=== PATIENT | male | born 1940 | race Caucasian/White ===

== ENCOUNTER 2017-07-02 15:04 | Inpatient (IN) | payer OTHER ==
--- NOTE | 2017-07-02 16:35 | ER ---
Nurse's Notes [facility] Name: Austin Vora Age: 76 yrs Sex: Male : 1940 Arrival Date: 07/02/2017 Time: 15:05 Bed 19 Private MD: Darrion Godoy S Diagnosis: Gastrointestinal hemorrhage, unspecified-lower;Anemia, unspecified Presentation: 07/02 15:53 Presenting complaint: Patient states: about 3:30am yesterday, i started passing blood, hj fresh bright red blood; denies abd pain; had colonoscopy last week and they did saw polyps; denies nausea and vomiting; reports weakness;. Transition of care: patient was not received from another setting of care. Onset of symptoms was July 02, 2017. Care prior to arrival: None. 15:53 Method Of Arrival: Ambulatory 15:53 Acuity: IKE 3 hj Triage Assessment: 15:58 General: Appears in no apparent distress. uncomfortable, Behavior is calm, cooperative, hj appropriate for age. Pain: Denies pain. GI: Reports rectal bleeding, bloody stool. Historical: - Allergies: 15:58 No Known Allergies; hj - Home Meds: 15:58 aspirin 81 mg Oral TbEC 1 tab once daily [Active]; parkinsons med [Active]; hj Carbidopa-Levodopa Oral [Active]; - PMHx: 15:58 Parkinsons; prostate cancer; hj - PSHx: 15:58 shoulder; hj - Immunization history:: Adult Immunizations up to date. - Social history:: Smoking status: Patient/guardian denies using tobacco. - Family history:: not pertinent. Screenin:21 Abuse screen: Denies threats or abuse. Nutritional screening: No deficits noted. em Tuberculosis screening: No symptoms or risk factors identified. Fall Risk None identified. Assessment: 16:15 General: Appears in no apparent distress. comfortable, Behavior is calm, cooperative. em Pain: Denies pain. Neuro: Level of Consciousness is awake, alert, obeys commands, Oriented to person, place, time, situation. Neuro: Denies dizziness. Cardiovascular: Capillary refill < 3 seconds Patient's skin is warm and dry. Respiratory: Airway is patent Respiratory effort is even, unlabored, Respiratory pattern is regular, symmetrical. GI: Abdomen is round Bowel sounds present X 4 quads. Reports bloody stool, since yesterday at 0330 Patient currently denies abdominal pain, nausea, vomiting. : No signs and/or symptoms were reported regarding the genitourinary system. EENT: No signs and/or symptoms were reported regarding the EENT system. Derm: Skin is intact, Skin is pink, warm \T\ dry. Musculoskeletal: Range of motion: intact in all extremities. 16:30 Reassessment: Patient appears in no apparent distress at this time. I agree with above iw assessment by Isma Vega LVN. 17:30 Reassessment: Patient appears in no apparent distress at this time. Patient and/or em family updated on plan of care and expected duration. Pain level reassessed. Patient is alert, oriented x 3, equal unlabored respirations, skin warm/dry/pink. Patient denies pain at this time. 18:12 Reassessment: Patient appears in no apparent distress at this time. Patient and/or em family updated on plan of care and expected duration. Pain level reassessed. Patient is alert, oriented x 3, equal unlabored respirations, skin warm/dry/pink. Patient denies pain at this time. 18:44 Reassessment: had one BM with bright red blood, ERP notified no new orders received. em Vital Signs: 15:58 BP 121 / 78; Pulse 91; Resp 18; Temp 98.9(TE); Pulse Ox 100% on R/A; Weight 83.91 kg; hj Height 5 ft. 11 in. (180.34 cm); Pain 0/10; 16:45 BP 132 / 67; Pulse 86; Resp 14; Pulse Ox 100% on R/A; Pain 0/10; em 17:45 BP 124 / 81; Pulse 87; Resp 18; Pulse Ox 99% on R/A; Pain 0/10; em 18:55 BP 123 / 78; Pulse 91; Resp 18; Pulse Ox 99% on R/A; Pain 0/10; em 19:15 BP 118 / 71; Pulse 90; Resp 18 S; Pulse Ox 100% on R/A; jd3 15:58 Body Mass Index 25.80 (83.91 kg, 180.34 cm) ED Course: 15:05 Patient arrived in ED. mr 15:06 Darrion Godoy MD is Private Physician. mr 15:55 Triage completed. hj 15:58 Arm band placed on left wrist. hj 16:08 David Patiño MD is Attending Physician. phil 16:18 Isma Vega LVN is Primary Nurse. em 16:21 Patient has correct armband on for positive identification. Placed in gown. Call light em in reach. Side rails up X2. Adult w/ patient. 16:21 No provider procedures requiring assistance completed. em 16:34 Robel Rush DO is Hospitalizing Provider. phil 18:02 EKG done, by central supply technician. reviewed by David Patiño MD. tc 20:28 Patient admitted, IV remains in place. jd3 Administered Medications: 16:54 Drug: Cipro 400 mg Volume: 200 ml; Route: IVPB; Infused Over: 60 mins; Site: right em antecubital; 18:00 Follow up: IV Status: Completed infusion; IV Intake: 100ml em 16:55 Drug: Flagyl 500 mg Volume: 100 ml; Route: IVPB; Rate: 200 ml/hr; Infused Over: 30 em mins; Site: right antecubital; 18:00 Follow up: IV Status: Completed infusion; IV Intake: 100ml em 16:55 Drug: NS 0.9% 1000 ml Route: IV; Rate: 125 ml/hr; Site: right antecubital; em 20:58 Follow up: Response: No adverse reaction; IV Status: Infusion continued upon admission jd3 Intake: 18:00 IV: 100ml; Total: 100ml. em 18:00 IV: 100ml; Total: 200ml. em Outcome: 16:35 Decision to Hospitalize by Provider. phil 20:27 Admitted to Med/surg accompanied by tech, via stretcher, room 230, with chart, Report jd3 called to Prachi HOSKINS 20:27 Condition: stable 20:27 Instructed on the need for admit, Demonstrated understanding of instructions. 21:12 Patient left the ED. jd3 Signatures: David Patiño MD MD cha Rivera, Maria mr Isma Vega, IMAGE PROCESSING ENGINEER IMAGE PROCESSING ENGINEER em Anum Kerr, Michaela Conte RN, supervisor detasseling crew EKG Ttc Cali Garcia RN RN hj Davies, Jonathon, RN RN jfeng Corrections: (The following items were deleted from the chart) 16:00 15:58 Pulse 91bpm; Resp 18bpm; Pulse Ox 100% RA; Temp 98.9F Temporal; 83.91 kg; Height hj 5 ft. 11 in.; BMI: 25.8; Pain 0/10; hj
--- NOTE | 2017-07-02 16:36 | EDPHYS ---
Physician Documentation [facility] Name: Austin Vora Age: 76 yrs Sex: Male : 1940 Arrival Date: 07/02/2017 Time: 15:05 Bed 19 Private MD: Darrion Godoy S ED Physician David Patiño HPI: 07/02 16:30 This 76 yrs old Male presents to ER via Ambulatory with complaints of Bloody phil Stools. 16:30 The patient presents to the emergency department with rectal bleeding. Onset: The phil symptoms/episode began/occurred yesterday. Abdominal pain: none is appreciated. Modifying factors: The symptoms are alleviated by nothing, the symptoms are aggravated by nothing. Associated signs and symptoms: The patient has no apparent associated signs or symptoms. Severity of symptoms: At their worst the symptoms were mild in the emergency department the symptoms are unchanged. The patient has not experienced similar symptoms in the past. colonoscopy 11 days, 3 polyps. Historical: - Allergies: 15:58 No Known Allergies; hj - Home Meds: 15:58 aspirin 81 mg Oral TbEC 1 tab once daily [Active]; parkinsons med [Active]; hj Carbidopa-Levodopa Oral [Active]; - PMHx: 15:58 Parkinsons; prostate cancer; hj - PSHx: 15:58 shoulder; hj - Immunization history:: Adult Immunizations up to date. - Social history:: Smoking status: Patient/guardian denies using tobacco. - Family history:: not pertinent. ROS: 16:30 Constitutional: Negative for fever, chills, and weight loss, Eyes: Negative for injury, phil pain, redness, and discharge, ENT: Negative for injury, pain, and discharge, Neck: Negative for injury, pain, and swelling, Cardiovascular: Negative for chest pain, palpitations, and edema, Respiratory: Negative for shortness of breath, cough, wheezing, and pleuritic chest pain, Back: Negative for injury and pain, : Negative for injury, bleeding, discharge, and swelling, MS/Extremity: Negative for injury and deformity, Skin: Negative for injury, rash, and discoloration, Neuro: Negative for headache, weakness, numbness, tingling, and seizure, Psych: Negative for depression, anxiety, suicide ideation, homicidal ideation, and hallucinations, Allergy/Immunology: Negative for hives, rash, and allergies, Endocrine: Negative for neck swelling, polydipsia, polyuria, polyphagia, and marked weight changes, Hematologic/Lymphatic: Negative for swollen nodes, abnormal bleeding, and unusual bruising. 16:30 Abdomen/GI: Positive for rectal bleeding. Exam: 16:30 Constitutional: This is a well developed, well nourished patient who is awake, alert, phil and in no acute distress. Head/Face: Normocephalic, atraumatic. Eyes: Pupils equal round and reactive to light, extra-ocular motions intact. Lids and lashes normal. Conjunctiva and sclera are non-icteric and not injected. Cornea within normal limits. Periorbital areas with no swelling, redness, or edema. ENT: Nares patent. No nasal discharge, no septal abnormalities noted. Tympanic membranes are normal and external auditory canals are clear. Oropharynx with no redness, swelling, or masses, exudates, or evidence of obstruction, uvula midline. Mucous membranes moist. Neck: Trachea midline, no thyromegaly or masses palpated, and no cervical lymphadenopathy. Supple, full range of motion without nuchal rigidity, or vertebral point tenderness. No Meningismus. Chest/axilla: Normal chest wall appearance and motion. Nontender with no deformity. No lesions are appreciated. Cardiovascular: Regular rate and rhythm with a normal S1 and S2. No gallops, murmurs, or rubs. Normal PMI, no JVD. No pulse deficits. Respiratory: Lungs have equal breath sounds bilaterally, clear to auscultation and percussion. No rales, rhonchi or wheezes noted. No increased work of breathing, no retractions or nasal flaring. Back: No spinal tenderness. No costovertebral tenderness. Full range of motion. Male : Normal genitalia with no discharge or lesions. Skin: Warm, dry with normal turgor. Normal color with no rashes, no lesions, and no evidence of cellulitis. MS/ Extremity: Pulses equal, no cyanosis. Neurovascular intact. Full, normal range of motion. Neuro: Awake and alert, GCS 15, oriented to person, place, time, and situation. Cranial nerves II-XII grossly intact. Motor strength 5/5 in all extremities. Sensory grossly intact. Cerebellar exam normal. Normal gait. Psych: Awake, alert, with orientation to person, place and time. Behavior, mood, and affect are within normal limits. 16:30 Abdomen/GI: Inspection: abdomen appears normal, Bowel sounds: normal, Palpation: abdomen is soft and non-tender, Rectal exam: Stool: grossly bloody, Liver: no appreciated palpable abnormalities, Hernia: not appreciated. Vital Signs: 15:58 BP 121 / 78; Pulse 91; Resp 18; Temp 98.9(TE); Pulse Ox 100% on R/A; Weight 83.91 kg; hj Height 5 ft. 11 in. (180.34 cm); Pain 0/10; 16:45 BP 132 / 67; Pulse 86; Resp 14; Pulse Ox 100% on R/A; Pain 0/10; em 17:45 BP 124 / 81; Pulse 87; Resp 18; Pulse Ox 99% on R/A; Pain 0/10; em 18:55 BP 123 / 78; Pulse 91; Resp 18; Pulse Ox 99% on R/A; Pain 0/10; em 19:15 BP 118 / 71; Pulse 90; Resp 18 S; Pulse Ox 100% on R/A; jd3 15:58 Body Mass Index 25.80 (83.91 kg, 180.34 cm) MDM: 16:08 Patient medically screened. [facility] 16:16 Patient medically screened. [facility] 16:30 Data reviewed: vital signs, nurses notes, lab test result(s), EKG, radiologic studies, [facility] CT scan, plain films. 07/02 16:13 Order name: Basic Metabolic Panel [facility] 07/02 16:13 Order name: BNP [facility] 07/02 16:13 Order name: CBC with Diff [facility] 07/02 16:13 Order name: Ckmb [facility] 07/02 16:13 Order name: CPK [facility] 07/02 16:13 Order name: LFT's [facility] 07/02 16:13 Order name: Magnesium [facility] 07/02 16:13 Order name: PT-INR [facility] 07/02 16:13 Order name: Ptt, Activated [facility] 07/02 16:13 Order name: Troponin (emerg Dept Use Only) [facility] 07/02 16:13 Order name: Lipase [facility] 07/02 16:13 Order name: Type And Screen [facility] 07/02 16:13 Order name: Urine Culture [facility] 07/02 17:02 Order name: Urine Dipstick--Ancillary (enter results) n[facility] 07/02 16:13 Order name: XRAY Chest (1 view) [facility] 07/02 16:13 Order name: CT Abd/Pelvis - W/Contrast [facility] 07/02 17:03 Order name: CBC with Automated Diff; Complete Time: 17:11 [facility] 07/02 17:05 Order name: Protime (+INR); Complete Time: 17:11 [facility] 07/02 17:05 Order name: PTT, Activated Partial Thromb; Complete Time: 17:11 [facility] 07/02 17:12 Order name: Basic Metabolic Panel; Complete Time: 17:37 [facility] 07/02 17:12 Order name: Lipase; Complete Time: 17:37 [facility] 07/02 17:16 Order name: Troponin (Emerg Dept Use Only); Complete Time: 17:37 [facility] 07/02 17:22 Order name: BNP B-Type Natriuretic Peptide; Complete Time: 17:37 [facility] 07/02 17:22 Order name: Liver (Hepatic) Function; Complete Time: 17:37 [facility] 07/02 17:22 Order name: Creatine Phosphokinase; Complete Time: 17:37 [facility] 07/02 17:22 Order name: CKMB Creatine Kinase MB; Complete Time: 17:37 [facility] 07/02 17:22 Order name: Magnesium; Complete Time: 17:37 [facility] 07/02 17:50 Order name: Urine Dipstick-Ancillary; Complete Time: 19:05 [facility] 07/02 17:51 Order name: Type and Screen; Complete Time: 19:05 [facility] 07/02 18:00 Order name: ABO/RH no charge; Complete Time: 19:05 [facility] 07/02 16:13 Order name: EKG; Complete Time: 16:15 [facility] 07/02 16:13 Order name: Cardiac monitoring; Complete Time: 18:03 [facility] 07/02 16:13 Order name: EKG - Nurse/Tech; Complete Time: 18:03 [facility] 07/02 16:13 Order name: IV Saline Lock; Complete Time: 18:03 [facility] 07/02 16:13 Order name: Labs collected and sent; Complete Time: 18:03 [facility] 07/02 16:13 Order name: O2 Per Protocol; Complete Time: 18:03 [facility] 07/02 16:13 Order name: O2 Sat Monitoring; Complete Time: 18:03 [facility] 07/02 16:13 Order name: Urine Dipstick-Ancillary (obtain specimen); Complete Time: 18:03 phil 07/02 16:38 Order name: RAD; Complete Time: 17:11 [facility] 07/02 18:37 Order name: CT; Complete Time: 19:05 EDMS Administered Medications: 16:54 Drug: Cipro 400 mg Volume: 200 ml; Route: IVPB; Infused Over: 60 mins; Site: right em antecubital; 18:00 Follow up: IV Status: Completed infusion; IV Intake: 100ml em 16:55 Drug: Flagyl 500 mg Volume: 100 ml; Route: IVPB; Rate: 200 ml/hr; Infused Over: 30 em mins; Site: right antecubital; 18:00 Follow up: IV Status: Completed infusion; IV Intake: 100ml em 16:55 Drug: NS 0.9% 1000 ml Route: IV; Rate: 125 ml/hr; Site: right antecubital; em 20:58 Follow up: Response: No adverse reaction; IV Status: Infusion continued upon admission jd3 Disposition: 07/02/17 16:35 Hospitalization ordered by Robel Rush for Inpatient Admission. Preliminary diagnosis are Gastrointestinal hemorrhage, unspecified - lower, Anemia, unspecified. - Bed requested for Telemetry/MedSurg (Inpatient). - Status is Inpatient Admission. jd3 - Condition is Stable. - Problem is new. - Symptoms have improved. UTI on Admission? No Signatures: Dispatcher [employer] David Helton MD MD cha Munoz, Edgar, MANAGER SUPPORT SERVICES MANAGER SUPPORT SERVICES em Cali Garcia RN RN hj Fitzgerald, Diane, RN RN df Davies, Jonathon, RN RN jd3
--- NOTE | 2017-07-02 16:37 | RAD REPORT ---
EXAM DESCRIPTION: RAD - Chest Single View - 07/02/2017 4:31 pm CLINICAL HISTORY: Chest and abdomen pain. COMPARISON: None. FINDINGS: Portable technique limits examination quality. The lungs are grossly clear. The heart is normal in size. No displaced fractures. IMPRESSION: No acute intrathoracic process suspected.
[2017-07-02] MEDS ORDERED: METRONIDAZOLE 500mg IVPB 500 MG/100 ML BAG IV ONE (16:45)
[2017-07-02] MEDS ORDERED: CIPROFLOXACIN 400mg IV 400 MG/200 ML BAG IV ONE (16:45)
[2017-07-02] MEDS ORDERED: NA CHLORIDE 0.9% 1,000 ML ONE (16:46)
[2017-07-02 16:58] LABS: Absolute Lymphocytes (CBC) 2.5 K/uL (0.7-4.9); Absolute Monocytes 0.9 K/uL (0.1-1.3); Absolute Neutrophil 3.7 K/uL (1.8-8.0); Basophils % 0.7 % (0-1.3); Eosinophils % 0.9 % (0-4.4); Hematocrit 39.8 % (39.6-49.0); Lymphocytes % 35.3 % (15.3-44.8); MCH 29.7 pg (27.0-35.0); MCV 89.8 fL (80-100); MPV 8.2 fL (7.6-11.3); RBC Red Blood Cell Count 4.44 M/uL (4.33-5.43)
[2017-07-02 17:05] LABS: Protime INR 0.98
[2017-07-02 17:12] LABS: Bicarbonate 26 mEq/L (21-31); Glucose Level 97 mg/dL (65-120); Lipase 16 U/L (22-51); Potassium 4.1 mEq/L (3.6-5.0); Sodium Level 140 mEq/L (135-145)
[2017-07-02 17:18] LABS: AST/SGOT 26 IU/L (10-42); Alkaline Phosphatase 80 IU/L (42-121); BUN Blood Urea Nitrogen 33 mg/dL (6-20); Bilirubin Direct 0.1 mg/dL (0-0.2); Bilirubin Total 1.2 mg/dL (0.3-1.2); Creatine Phosphokinase 232 IU/L (22-269); Glomerular Filtration Rate 70 mL/min (=/>90); Magnesium 2.2 mg/dL (1.8-2.5); Protein, Total 6.4 g/dL (6.0-8.3)
[2017-07-02 17:22] LABS: ALT/SGPT < 5 IU/L (10-60)
[2017-07-02 17:50] LABS: Urine Blood NEGATIVE (NEG); Urine Glucose NEGATIVE (NEG); Urine Protein NEGATIVE (NEG); Urine Specific Gravity >1.030 (1.005-1.030); Urine pH 5.5 (5.0-7.0)
--- NOTE | 2017-07-02 18:06 | P.HP ---
Certification for Inpatient Patient admitted to: Observation With expected LOS: <2 Midnights Patient will require the following post-hospital care: None Practitioner: I am a practitioner with admitting privileges, knowledge of patient current condition, hospital course, and medical plan of care. Services: Services provided to patient in accordance with Admission requirements found in Title 42 Section 412.3 of the Code of Federal Regulations Patient History Date of Service: 07/02/17 Primary Care Provider: Dr. Godoy; GI-Dr. Clark; Urology-Dr. Garcia Reason for admission: Rectal bleeding History of Present Illness: 76-year-old male presented emergency room with rectal bleeding. Patient reports that he had a colonoscopy about 11 days ago. This was done as an outpatient. Patient had multiple polyps removed. He did well post procedure. Then yesterday he began to have bright red blood coming from the rectum. It initially looked like diarrhea. He had 5 bowel movements with a red blood noted. No significant nausea, vomiting or abdominal pain noted. The patient continued to have rectal bleeding so we came to the emergency room for further evaluation. In the ER he was evaluated. Vital signs stable. Hemoglobin 13. Sodium 140, potassium 4.1, GFR 70. Chest x-ray unremarkable. CT scan of the abdomen and pelvis are pending. Due to nature of his findings the patient was admitted for observation. I was asked to admit the patient. When I saw the patient the ER, he appeared stable. He did not appear in any distress. Rectal bleeding under control. Patient with history of Parkinson's and prostate cancer. Patient does take a baby aspirin. Patient admits to drinking alcohol. He does not smoke. Home medications list reviewed: Yes - Past Medical/Surgical History Diabetic: No -: Parkinson's -: Prostate cancer -: Rotator cuff bilateral Psychosocial/ Personal History: The patient is of 35 years. He has 3 children. He no longer works. - Family History Mother -: Cancer (Breast cancer) Father -: Diabetes - Social History Smoking Status: Never smoker Alcohol use: Yes CD- Drugs: No Caffeine use: Yes Place of Residence: Home Review of Systems General: As per HPI Eyes: Unremarkable ENT: Unremarkable Respiratory: Unremarkable Cardiovascular: Unremarkable Gastrointestinal: Melena, Hematochezia, As per HPI Genitourinary: Unremarkable Musculoskeletal: Unremarkable Integumentary: Unremarkable Neurological: Unremarkable Lymphatics: Unremarkable Physical Examination - Physical Exam General: Alert, In no apparent distress, Oriented x3, Cooperative HEENT: Atraumatic, Normocephalic, PERRLA, Mucous membr. moist/pink Neck: Supple, No Thyromegaly Respiratory: Clear to auscultation bilaterally, Normal air movement Cardiovascular: Normal pulses, Regular rate/rhythm Gastrointestinal: Normal bowel sounds, Soft and benign, Non-distended, No ascites, No tenderness, No masses, No rebound, No guarding Musculoskeletal: No contractures, No erythema, No tenderness, No warmth Integumentary: No tenderness/swelling, No erythema, No warmth, No cyanosis Neurological: Normal speech, Normal strength at 5/5 x4 extr, Normal tone, Normal affect, Other (Mild tremor noted) Lymphatics: No axilla or inguinal lymphadenopathy Rectal: Other (Patient has dried blood to the anus.) Assessment and Plan - Problems (Diagnosis) (1) Rectal bleeding Current Visit: Yes Status: Acute Plan: Patient had colonoscopy 10 days ago. Patient with rectal bleeding. This appears stable at this time. Hemoglobin stable. Will continue monitor hemoglobin closely. If hemoglobin drops below 7 the patient may require transfusion. Will start Cipro and Flagyl. Case discussed with GI. Will continue with a clear liquid diet. GI will assess tomorrow. Await CT findings. (2) Colon polyps Current Visit: Yes Status: Chronic Plan: Patient reports colonoscopy recently. 3 polyps removed. (3) Parkinsons Current Visit: Yes Status: Chronic Plan: Will need to continue with his medication. (4) Prostate cancer Current Visit: Yes Status: Chronic Plan: Patient currently being assessed by urology. He is currently being staged for possible treatment. Discharge Plan: Home Plan to discharge in: 24 Hours - Advance Directives Does patient have a Living Will: Yes Does patient have a Durable POA for Healthcare: No - Code Status/Comfort Care Code Status Assessed: Yes Time Spent Managing Pts Care (In Minutes): 55
--- NOTE | 2017-07-02 18:37 | RAD REPORT ---
EXAM DESCRIPTION: CT - Abdomen Pelvis W Contrast - 07/02/2017 6:07 pm CLINICAL HISTORY: Abdominal pain, with the stools, bright red blood per rectum, history of colonosco py 1 week earlier with polyps COMPARISON: None. TECHNIQUE: Biphasic, helical CT imaging of the abdomen and pelvis was performed following 100 ml non -ionic IV contrast. Oral contrast was given. All CT scans are performed using dose optimization technique as appropriate and may include automated exposure control or mA/KV adjustment according to patient size. FINDINGS: No suspicious findings in the lung bases. No pericardial thickening or effusion. The liver, spleen, and pancreas show no suspicious findings. Gallbladder is mostly contracted. Gallst ones can be occult. No biliary tree dilatation. Symmetric renal function is seen with no hydronephrosis or suspicious renal mass. No pyelonephritis o r acute renal parenchymal process. Partially filled urinary bladder shows no suspicious findings. Pro state gland is prominent but no suspicion for invasion of adjacent structures. No dilated bowel loops or bowel wall thickening. No GI process seen to explain the rectal bleeding hi story. No free air, free fluid or inflammatory stranding. No mass or bulky lymphadenopathy. Small fa t filled bilateral inguinal hernias are present. No adrenal abnormality. Prominent disc and bony degenerative changes are present. IMPRESSION: CT abdomen and pelvis imaging shows no acute or worrisome finding. Specifically, no abno rmality to explain rectal bleeding history.
[2017-07-02] MEDS ORDERED: SODIUM CHLORIDE 0.9% 10ML INJ IV PRN (19:46)
[2017-07-02] MEDS: NA CHLORIDE 0.9% 1,000 ML IV SCH (19:46)
[2017-07-02] MEDS ORDERED: ONDANSETRON 4 MG/2 ML VIAL IV PRN (19:46)
[2017-07-02] MEDS ORDERED: ACETAMINOPHEN 500 MG TAB PO PRN (19:46)
[2017-07-02] MEDS ORDERED: CIPROFLOXACIN 400mg IV 400 MG/200 ML BAG IV SCH (21:00)
[2017-07-02 22:35] LABS: Hematocrit 35.2 % (39.6-49.0)
[2017-07-03] MEDS: METRONIDAZOLE 500mg IVPB 500 MG/100 ML BAG IV SCH ×3 (01:07→16:22)
[2017-07-03] MEDS: CIPROFLOXACIN 400mg IV 400 MG/200 ML BAG IV SCH ×2 (04:25→16:22)
[2017-07-03] MEDS: NA CHLORIDE 0.9% 1,000 ML IV SCH ×3 (04:25→16:21)
[2017-07-03 05:48] LABS: Absolute Monocytes 0.7 K/uL (0.1-1.3); Basophils % 0.7 % (0-1.3); Eosinophils % 1.9 % (0-4.4); Hematocrit 33.5 % (39.6-49.0); Lymphocytes % 41.3 % (15.3-44.8); MCH 29.7 pg (27.0-35.0); MCV 89.7 fL (80-100); MPV 8.2 fL (7.6-11.3); Monocytes % 15.3 % (3.3-12.3); RBC Red Blood Cell Count 3.74 M/uL (4.33-5.43)
[2017-07-03 06:12] LABS: Magnesium 2.1 mg/dL (1.8-2.5); Potassium 3.7 mEq/L (3.6-5.0)
[2017-07-03 07:12] LABS: Urine Appearance CLEAR; Urine Bilirubin NEGATIVE (NEG); Urine Blood NEGATIVE (NEG); Urine Color YELLOW; Urine Glucose NEGATIVE (NEG); Urine Protein NEGATIVE (NEG); Urine Specific Gravity >=1.030 (1.005-1.030); Urine Urobilinogen 0.2 mg/dL (0.2-1.0)
[2017-07-03 07:18] LABS: Urine Microscopic Reflex ORDER UMIC
[2017-07-03] MEDS ORDERED: POTASSIUM CL SA 10 MEQ TAB PO ONE (07:30)
--- NOTE | 2017-07-03 07:58 | EKG ---
Test Date: 2017-07-02 Test Time: 17:51:12 Director Of Direct Marketing: VERO MEASUREMENT RESULTS: Intervals: Rate: 90 CT: 160 QRSD: 126 QT: 382 QTc: 467 [place]: P: 63 CT: 160 QRS: 1 T: 39 INTERPRETIVE STATEMENTS: Normal sinus rhythm Right bundle branch block Abnormal ECG No previous ECG available for comparison Electronically Signed On 07-03-17 07:57:07 CDT by Matthew Jacobs
[2017-07-03] MEDS ORDERED: PNEUMOCOCCAL VACCINE 0.5 ML IMVAC ONE (08:00)
[2017-07-03] MEDS ORDERED: INFLUENZA VACCINE (for 3y+) 0.5 ML DOSE IMVAC ONE (08:00)
[2017-07-03 08:16] LABS: Urine Bacteria NONE SEEN /HPF (NONE SEEN); Urine RBC <5 /HPF (NONE SEEN)
[2017-07-03 08:17] LABS: Urine Culture Reflex Order NOT NEEDED
[2017-07-03] MEDS: PANTOPRAZOLE 40 MG INJ IVP SCH (08:34)
[2017-07-03] MEDS ORDERED: AMANTADINE HCL PO SCH (09:00)
[2017-07-03] MEDS ORDERED: CARBIDOPA LEVO PO SCH (09:00)
[2017-07-03] MEDS ORDERED: RASAGILINE MESYLATE PO SCH (09:00)
--- NOTE | 2017-07-03 10:30 | P.PN ---
Subjective Date of Service: 07/03/17 Primary Care Provider: Dr. Godoy; GI-Dr. Clark; Urology-Dr. Garcia Chief Complaint: Rectal bleeding Subjective: Other (Patient doing well at this time. Still with rectal bleeding. ) Physical Examination - Vital Signs Temperature: 97.8 F Blood Pressure: 112/60 Pulse: 79 Respirations: 18 Pulse Ox (%): 100 - Physical Exam General: Alert, In no apparent distress, Oriented x3, Cooperative HEENT: Atraumatic Neck: Supple, No Thyromegaly Respiratory: Clear to auscultation bilaterally, Normal air movement Cardiovascular: Normal pulses, Regular rate/rhythm Gastrointestinal: Normal bowel sounds, Soft and benign, Non-distended, No ascites, No tenderness, No masses, No rebound, No guarding Musculoskeletal: No erythema, No tenderness, No warmth Integumentary: No tenderness/swelling, No erythema, No warmth, No cyanosis Neurological: Normal speech, Normal strength at 5/5 x4 extr, Normal tone, Normal affect - Studies Medications List Reviewed: Yes Assessment & Plan - Problems (Diagnosis) (1) Rectal bleeding Current Visit: Yes Status: Acute Plan: Patient had colonoscopy 10 days ago. Patient with rectal bleeding. Hemoglobin stable at this time. Will continue monitor hemoglobin closely. Patient may require blood transfusion if below 7. Patient with rectal bleeding this morning. Patient started on Cipro and Flagyl last night. CT scan unremarkable. Await GI evaluation. Patient may require colonoscopy to further assess and treat. (2) Colon polyps Current Visit: Yes Status: Chronic Plan: Patient reports colonoscopy recently. 3 polyps removed at that time. Will continue with above plan of care. Will discuss with GI. (3) Parkinsons Current Visit: Yes Status: Chronic Plan: Will continue with his medication. (4) Prostate cancer Current Visit: Yes Status: Chronic Plan: Patient currently being assessed by urology. He is currently being staged for possible treatment. This will be further addressed as an outpatient. Discharge Plan: Home Plan to discharge in: 24 Hours Time Spent Managing Pts Care (In Minutes): 55
[2017-07-03] MEDS: CARBIDOPA LEVODOPA PO SCH ×2 (14:00→21:00)
[2017-07-03] MEDS: CARBIDOPA LEVO PO SCH (21:00)
[2017-07-04] MEDS: METRONIDAZOLE 500mg IVPB 500 MG/100 ML BAG IV SCH ×2 (01:39→09:00)
[2017-07-04] MEDS: NA CHLORIDE 0.9% 1,000 ML IV SCH (01:39)
[2017-07-04] MEDS: CIPROFLOXACIN 400mg IV 400 MG/200 ML BAG IV SCH (04:39)
[2017-07-04 05:23] LABS: Absolute Lymphocytes (CBC) 1.7 K/uL (0.7-4.9); Absolute Monocytes 0.7 K/uL (0.1-1.3); Absolute Neutrophil 2.4 K/uL (1.8-8.0); Basophils % 0.8 % (0-1.3); Eosinophils % 1.3 % (0-4.4); Hematocrit 36.3 % (39.6-49.0); Lymphocytes % 34.2 % (15.3-44.8); MCH 29.7 pg (27.0-35.0); MCV 89.7 fL (80-100); MPV 8.1 fL (7.6-11.3); Monocytes % 14.5 % (3.3-12.3); RBC Red Blood Cell Count 4.05 M/uL (4.33-5.43)
[2017-07-04 05:35] LABS: Magnesium 1.9 mg/dL (1.8-2.5); Potassium 4.8 mEq/L (3.6-5.0)
--- NOTE | 2017-07-04 08:06 | P.DS ---
Admission Date: 07/02/17 Discharge Date: 07/04/17 Primary Care Provider: Dr. Godoy; GI-Dr. Clark; Urology-Dr. Garcia Disposition: ROUTINE DISCHARGE Discharge Condition: GOOD Reason for Admission: Rectal bleeding Consultations: GI-Dr. Clark Procedures: CT scan: Unremarkable. - Problems (1) Rectal bleeding Onset Date: 07/03/17 Current Visit: Yes Status: Acute (2) Colon polyps Onset Date: 07/03/17 Current Visit: Yes Status: Chronic (3) Parkinsons Onset Date: 07/03/17 Current Visit: Yes Status: Chronic (4) Prostate cancer Onset Date: 07/03/17 Current Visit: Yes Status: Chronic Brief History of Present Illness: 76-year-old male presented emergency room with rectal bleeding. Patient reports that he had a colonoscopy about 11 days ago. This was done as an outpatient. Patient had multiple polyps removed. He did well post procedure. Then yesterday he began to have bright red blood coming from the rectum. It initially looked like diarrhea. He had 5 bowel movements with a red blood noted. No significant nausea, vomiting or abdominal pain noted. The patient continued to have rectal bleeding so we came to the emergency room for further evaluation. In the ER he was evaluated. Vital signs stable. Hemoglobin 13. Sodium 140, potassium 4.1, GFR 70. Chest x-ray unremarkable. CT scan of the abdomen and pelvis are pending. Due to nature of his findings the patient was admitted for observation. I was asked to admit the patient. When I saw the patient the ER, he appeared stable. He did not appear in any distress. Rectal bleeding under control. Patient with history of Parkinson's and prostate cancer. Patient does take a baby aspirin. Patient admits to drinking alcohol. He does not smoke. Hospital Course: The patient did well during the course of his stay. His rectal bleeding resolved. Patient was evaluated by GI. No intervention was needed. Patient had recent colonoscopy with removal of colon polyps. Rectal bleeding likely related to this. At discharge patient was without any nausea, vomiting, abdominal pain or rectal bleeding. Patient will continue with a GI soft diet. Recommendation is for the patient to follow up with GI in 1-2 weeks to follow up this hospitalization. Hemoglobin remained stable during his stay. Recommendation to recheck CBC in 2-4 weeks to monitor his progress. Patient with history of Parkinson's. He will continue with his medication and follow up with neurology as directed. Patient has a history of prostate cancer. He is currently being evaluated for treatment. He will follow up with urology to further address. Vital Signs/Physical Exam: Temp Pulse Resp BP Pulse Ox 98 F 84 18 127/65 97 07/04/17 04:00 07/04/17 04:00 07/04/17 04:00 07/04/17 04:00 07/04/17 04:00 General: Alert, In no apparent distress, Oriented x3, Cooperative HEENT: Atraumatic, Mucous membr. moist/pink Neck: Supple, No Thyromegaly Respiratory: Clear to auscultation bilaterally, Normal air movement Cardiovascular: Normal pulses, Regular rate/rhythm Gastrointestinal: Normal bowel sounds, Soft and benign, Non-distended, No tenderness, No masses, No rebound, No guarding Musculoskeletal: No erythema, No tenderness, No warmth Integumentary: No tenderness/swelling, No erythema, No warmth, No cyanosis Neurological: Normal speech, Normal strength at 5/5 x4 extr, Normal tone, Normal affect Laboratory Data at Discharge: WBC 4.9 K/uL (4.3-10.9) 07/04/17 04:58 Hgb 12.0 g/dL (13.6-17.9) L 07/04/17 04:58 Hct 36.3 % (39.6-49.0) L 07/04/17 04:58 Plt Count 192 K/uL (152-406) 07/04/17 04:58 PT 11.6 SECONDS (9.5-12.5) 07/02/17 16:40 INR 0.98 07/02/17 16:40 APTT 27.0 SECONDS (24.3-36.9) 07/02/17 16:40 Sodium 139 mEq/L (135-145) 07/04/17 04:58 Potassium 4.8 mEq/L (3.6-5.0) 07/04/17 04:58 BUN 11 mg/dL (6-20) 07/04/17 04:58 Creatinine 0.84 mg/dL (0.61-1.24) 07/04/17 04:58 Glucose 107 mg/dL (65-120) 07/04/17 04:58 Magnesium 1.9 mg/dL (1.8-2.5) 07/04/17 04:58 Total Bilirubin 1.2 mg/dL (0.3-1.2) 07/02/17 16:40 AST 26 IU/L (10-42) 07/02/17 16:40 ALT < 5 IU/L (10-60) L 07/02/17 16:40 Alkaline Phosphatase 80 IU/L (42-121) 07/02/17 16:40 B-Natriuretic Peptide 23 pg/ml (<=100) 07/02/17 16:40 Lipase 16 U/L (22-51) L 07/02/17 16:40 Home Medications: Amantadine HCl [Amantadine] 1 tab PO BID 07/02/17 Carbidopa-Levo Er 25-100 1 tab PO BID 07/02/17 Carbidopa/Levodopa [Carbidopa-Levodopa 25-100 Tab] 1 each PO TID 07/02/17 Rasagiline Mesylate [Azilect] 1 tab PO DAILY 07/02/17 Patient Discharge Instructions: 1. Patient will follow up with his PCP in 1 week to follow up this hospitalization. 2. Patient presented with rectal bleeding. Patient with recent history of colonoscopy requiring removal of colon polyps. Patient without bleeding at this time. Patient evaluated by GI. No intervention needed. Hemoglobin stable. Recommendation is for the patient to follow up with GI within 1 week to follow up this hospitalization. Patient may continue with a GI soft diet. Recommendation is to recheck lab-CBC in 2-4 weeks to monitor his progress. 3. Patient with history of Parkinson's. He will continue with his medications. 4. Patient with history of prostate cancer. Patient will follow up with urology to further address. Diet: GI soft Activity: Ad estevan Time spent managing pt's care (in minutes): 55
[2017-07-04] MEDS: CARBIDOPA LEVODOPA PO SCH (09:00)
[2017-07-04] MEDS: PANTOPRAZOLE 40 MG INJ IVP SCH (09:00)
[2017-07-04] MEDS: CARBIDOPA LEVO PO SCH (09:00)
== END 2017-07-04 10:49 | disposition home or self-care (01) | DRG 316 ==
LOC: ER 15:04 → ERHOLD 16:37 → 2ND 19:35
PROVIDERS: ADMIT Family Medicine; ATTEND Family Medicine
DX: R58 Hemorrhage, not elsewhere classified (principal); G20 Parkinson's disease; C61 Malignant neoplasm of prostate; Z86.010 Personal history of colon polyps
CPT/HCPCS: 36415; 71045; 74177; 80048; 80076; 81003; 81015; 82550; 82553; 83690; 83735; 83880; 84484; 85014; 85018; 85025; 85610; 85730; 86850; 86900; 86901; 87086; 87088; 93005; 96361; 96365; 99285; C9113; J0744; J2405; J7030; Q9967